=== PATIENT | female | born 1935 | race Caucasian/White ===

== ENCOUNTER 2021-07-24 16:33 | Emergency (ER) | payer MEDICARE, BC | END 2021-07-24 20:55 | disposition home or self-care (01) | LOC: CSHERS 16:33 | DX: M25.561 Pain in right knee (principal); E03.9 Hypothyroidism, unspecified; I10 Essential (primary) hypertension; M79.604 Pain in right leg; R60.0 Localized edema ==

== ENCOUNTER 2022-11-22 08:49 | Inpatient (IN) | payer MEDICARE, BC ==
[2022-11-22 09:46] LABS: #Basophils 0.1 10x3/uL (0.0-0.2); #Eosinphils 0.2 10x3/uL (0.0-0.5); #Monocytes 0.6 10x3/uL (0.0-1.1); #Neutrophils 7.5 10x3/uL (1.5-8.4); %Basophils 0.5 % (0.0-2.0); %Eosinophils 1.7 % (0.0-6.0); %Lymphocytes 9.8 % (18.0-47.0); %Monocytes 6.2 % (0.0-10.0); %Neutrophils 80.8 % (40.0-75.0); Hemoglobin 4.6 g/dL (12.0-15.5); Mean Corpuscular HGB CONC 31.3 g/dL (32.0-36.0); Mean Corpuscular Hemoglobin 28.2 pg (27.0-33.0); Mean Corpuscular Volume 90.2 fl (81.6-98.3); Mean Platelet Volume 9.5 fl (7.4-10.4); Platelet Count 481 10x3/uL (150-450); RBC Distribution Width 16.3 % (11.5-14.5); Red Blood Cell (RBC) Count 1.63 10x6/uL (3.90-5.03); White Blood Cell (WBC) Count 9.2 10x3/uL (3.5-10.5)
[2022-11-22 09:56] LABS: ALT (SGPT) 13 U/L (8-55); AST (SGOT) 16 U/L (5-34); Albumin 3.5 g/dL (3.4-4.8); Alkaline Phosphatase 58 U/L (40-110); Anion Gap 17 mmol/L (10-20); BUN (Urea Nitrogen) 34 mg/dL (9.8-20.1); Bilirubin, Total 0.5 mg/dL (0.2-1.2); Calc. Creatinine Clearance 0 mL/min (70-130); Calcium 9.1 mg/dL (7.8-10.44); Carbon Dioxide 25 mmol/L (23-31); Chloride 96 mmol/L (98-107); Estimated GFR 39; Globulin 3.3 g/dL (2.4-3.5); Glucose 123 mg/dL (83-110); Protein, Total 6.8 g/dL (5.8-8.1); Sodium 135 mmol/L (136-145)
[2022-11-22 10:16] LABS: Hypochromia SLIGHT = 6-15 cells (100X) (0-5/hpf); Macrocytosis SLIGHT = 6-15 cells (100X) (0-5/hpf); Microcytosis SLIGHT = 6-15 cells (100X) (0-5/hpf); Polychromasia SLIGHT = 2-3 cells (100X) (0-2/hpf)
[2022-11-22 10:17] LABS: Platelet Morphology Comment Appears Increased
[2022-11-22 10:23] LABS: Reflex for Review?? YES
[2022-11-22] MEDS ORDERED: Ondansetron PF 4 MG/2 ML Vial IVP PRN (11:10)
[2022-11-22] MEDS ORDERED: Acetaminophen 325 MG TAB PO PRN (11:10)
[2022-11-22] MEDS ORDERED: Ondansetron ODT 4 MG TAB PO PRN (11:10)
[2022-11-22] MEDS ORDERED: Furosemide 40 MG/4 ML VIAL IVP SCH (12:30)
[2022-11-22] MEDS ORDERED: Furosemide 40 MG/4 ML VIAL ONE (14:04)
[2022-11-22 15:35] LABS: Hemoglobin 8.6 g/dL (12.0-15.5); Platelet Count 378 10x3/uL (150-450)
[2022-11-22] MEDS ORDERED: GoLYTELY 4,000 ml Bottle PO SCH (18:00)
[2022-11-22 22:08] LABS: Hemoglobin 8.6 g/dL (12.0-15.5)
[2022-11-22] MEDS ORDERED: Dextrose 5%-Lactated Ringers 1,000 ML IV SCH (23:59)
[2022-11-23 04:48] VITALS: BMI 30.2
[2022-11-23 05:10] LABS: #Basophils 0.1 10x3/uL (0.0-0.2); #Eosinphils 0.2 10x3/uL (0.0-0.5); #Monocytes 0.7 10x3/uL (0.0-1.1); %Basophils 0.8 % (0.0-2.0); %Eosinophils 1.9 % (0.0-6.0); %Lymphocytes 11.5 % (18.0-47.0); %Monocytes 8.1 % (0.0-10.0); %Neutrophils 76.8 % (40.0-75.0); Hemoglobin 7.9 g/dL (12.0-15.5); Mean Corpuscular HGB CONC 32.8 g/dL (32.0-36.0); Mean Corpuscular Hemoglobin 28.2 pg (27.0-33.0); Mean Corpuscular Volume 86.1 fl (81.6-98.3); Mean Platelet Volume 9.7 fl (7.4-10.4); Platelet Count 387 10x3/uL (150-450); RBC Distribution Width 16.1 % (11.5-14.5); White Blood Cell (WBC) Count 9.1 10x3/uL (3.5-10.5)
[2022-11-23 05:24] LABS: ALT (SGPT) 12 U/L (8-55); AST (SGOT) 16 U/L (5-34); Albumin 3.3 g/dL (3.4-4.8); Alkaline Phosphatase 54 U/L (40-110); Anion Gap 19 mmol/L (10-20); BUN (Urea Nitrogen) 36 mg/dL (9.8-20.1); Bilirubin, Total 0.6 mg/dL (0.2-1.2); Calc. Creatinine Clearance 40 mL/min (70-130); Calcium 8.8 mg/dL (7.8-10.44); Carbon Dioxide 28 mmol/L (23-31); Chloride 96 mmol/L (98-107); Estimated GFR 47; Globulin 3.2 g/dL (2.4-3.5); Glucose 121 mg/dL (83-110); Potassium 2.8 mmol/L (3.5-5.1); Protein, Total 6.5 g/dL (5.8-8.1); Sodium 140 mmol/L (136-145)
[2022-11-23 05:46] LABS: SARS-CoV-2 NAA Rapid Test Not Detected (NotDetected)
[2022-11-23 09:16] LABS: Hemoglobin 7.7 g/dL (12.0-15.5)
[2022-11-23] MEDS ORDERED: Potassium Chloride 20 MEQ TAB PO SCH (10:45)
[2022-11-23] MEDS ORDERED: Lidocaine 1% PF 5 ML VIAL ONE (13:17)
[2022-11-23] MEDS ORDERED: PROPOFOL 20 ML ONE ×3 (13:17→14:12)
[2022-11-23 15:18] LABS: Hemoglobin 7.1 g/dL (12.0-15.5)
[2022-11-24 04:45] LABS: ALT (SGPT) 13 U/L (8-55); AST (SGOT) 15 U/L (5-34); Alkaline Phosphatase 53 U/L (40-110); Anion Gap 12 mmol/L (10-20); BUN (Urea Nitrogen) 25 mg/dL (9.8-20.1); Bilirubin, Total 0.4 mg/dL (0.2-1.2); Calc. Creatinine Clearance 40 mL/min (70-130); Calcium 8.4 mg/dL (7.8-10.44); Carbon Dioxide 29 mmol/L (23-31); Chloride 101 mmol/L (98-107); Estimated GFR 47; Globulin 2.6 g/dL (2.4-3.5); Glucose 92 mg/dL (83-110); Potassium 2.7 mmol/L (3.5-5.1); Protein, Total 5.6 g/dL (5.8-8.1); Sodium 139 mmol/L (136-145)
[2022-11-24 04:50] LABS: #Basophils 0.1 10x3/uL (0.0-0.2); #Eosinphils 0.2 10x3/uL (0.0-0.5); #Monocytes 0.6 10x3/uL (0.0-1.1); #Neutrophils 6.2 10x3/uL (1.5-8.4); %Basophils 0.7 % (0.0-2.0); %Eosinophils 2.7 % (0.0-6.0); %Lymphocytes 16.2 % (18.0-47.0); %Monocytes 7.5 % (0.0-10.0); %Neutrophils 72.3 % (40.0-75.0); Mean Corpuscular Hemoglobin 28.6 pg (27.0-33.0); Mean Corpuscular Volume 89.4 fl (81.6-98.3); Mean Platelet Volume 9.6 fl (7.4-10.4); Platelet Count 348 10x3/uL (150-450); RBC Distribution Width 17.3 % (11.5-14.5); Red Blood Cell (RBC) Count 2.45 10x6/uL (3.90-5.03); White Blood Cell (WBC) Count 8.5 10x3/uL (3.5-10.5)
[2022-11-24] MEDS ORDERED: Electrolyte Replacement Protocol 1 EACH FS ONE (07:39)
[2022-11-24] MEDS ORDERED: Potassium Chloride 20 MEQ TAB PO SCH (07:45)
[2022-11-24] MEDS ORDERED: Potassium Chloride 20 MEQ in Premix Bag 1 BAG IVPB SCH (07:45)
[2022-11-24] MEDS ORDERED: Electrolyte Replacement Protocol 1 EACH FS SCH (07:45)
[2022-11-24 09:22] LABS: Magnesium 2.1 mg/dL (1.6-2.6); Phosphorus 3.1 mg/dL (2.3-4.7)
[2022-11-24] MEDS: Potassium Bicarbonate/Cit Ac 20 MEQ TAB PO SCH ×2 (13:08→16:00)
[2022-11-24] MEDS ORDERED: Dronedarone HCl 400 MG TAB PO SCH (17:00)
[2022-11-24 17:03] VITALS: BP 132/75; TEMP 98.6
[2022-11-24] MEDS ORDERED: Apixaban 5 MG TAB PO SCH (21:00)
[2022-11-25] MEDS ORDERED: Levothyroxine Sodium 50 MCG TAB PO SCH (06:00)
[2022-11-25] MEDS ORDERED: INDAPAMIDE 1.25 MG PO SCH (09:00)
== END 2022-11-24 17:00 | disposition home or self-care (01) | DRG 378 ==
LOC: CSHERS 08:49 → CSHERHOLD 14:02 → CSHTELE 18:08
PROVIDERS: ADMIT Student in an Organized Health Care Education/Training Program; ATTEND Hospitalist
PROC: 30233N1 Transfusion of Nonautologous Red Blood Cells into Peripheral Vein, Percutaneous Approach (ICD-10-PCS; principal; 2022-11-22)
PROC: 0W3P8ZZ Control Bleeding in Gastrointestinal Tract, Via Natural or Artificial Opening Endoscopic (ICD-10-PCS; 2022-11-23)
PROC: 0DJD8ZZ Inspection of Lower Intestinal Tract, Via Natural or Artificial Opening Endoscopic (ICD-10-PCS; 2022-11-23)
DX: K31.811 Angiodysplasia of stomach and duodenum with bleeding (principal); D62 Acute posthemorrhagic anemia; Z20.822 Contact with and (suspected) exposure to COVID-19; I48.91 Unspecified atrial fibrillation; I10 Essential (primary) hypertension; K57.30 Diverticulosis of large intestine without perforation or abscess without bleeding; Z66 Do not resuscitate; F03.90 Unspecified dementia, unspecified severity, without behavioral disturbance, psychotic disturbance, mood disturbance, and anxiety; E78.5 Hyperlipidemia, unspecified; E87.6 Hypokalemia; E03.9 Hypothyroidism, unspecified; Z90.710 Acquired absence of both cervix and uterus; Z98.49 Cataract extraction status, unspecified eye; Z79.01 Long term (current) use of anticoagulants; Z90.89 Acquired absence of other organs; Z79.890 Hormone replacement therapy; Z79.899 Other long term (current) drug therapy; Z87.891 Personal history of nicotine dependence; Z80.0 Family history of malignant neoplasm of digestive organs
CPT/HCPCS: 36415; 36430; 80053; 82274; 83735; 84100; 84443; 85025; 85060; 86850; 86900; 86901; 93005; 94760; 99285; J1940; J2704; J3480; P9016; U0002